=== PATIENT | female | born 1970 | race Two or more races ===

== ENCOUNTER 2022-10-26 12:03 | Emergency (ER) | payer OTHER ==
[~2022-10-26] VITALS: Ht 170.2 cm; Wt 170.2 kg
[2022-10-26 12:41] VITALS: BP 125/73
[2022-10-26 15:25] LABS: Basophils # (auto) 0 10 ^3/uL (0-0.2); Basophils % (auto) 0.6 % (0.0-2.0); Eosinophils # (auto) 0.1 10 ^3/uL (0-0.8); Eosinophils % (auto) 1.2 % (0.0-7.0); Hematocrit 39.9 % (36.0-46.0); Hemoglobin 13.5 g/dL (12.2-16.2); Lymphocytes # (auto) 1.8 10 ^3/uL (0.4-5.4); Lymphocytes % (auto) 22.7 % (10.0-50.0); Mean Corpuscular Hemoglobin 28.2 pg (28.0-32.0); Mean Corpuscular Volume 83.1 fL (80.0-100.0); Monocytes # (auto) 0.4 10 ^3/uL (0-1.3); Monocytes % (auto) 5.2 % (0.0-12.0); Neutrophils # (auto) 5.6 10 ^3/uL (1.6-8.6); Neutrophils % (auto) 70.3 % (37.0-80.0); Nucleated Red Blood Cells % 0.2 %; White Blood Cell 7.9 10^3/uL (4.4-10.8)
[2022-10-26 15:49] LABS: Urine Bacteria FEW /hpf (None Seen); Urine Blood Negative /uL (Negative); Urine Mucus FEW (None Seen); Urine Specific Gravity 1.023 (1.001-1.035); Urine WBC 14 /hpf (0 - 5)
[2022-10-26 16:05] LABS: Albumin 3.3 g/dL (3.4-5.0); BUN/Creatinine Ratio 10.9 (10.0-20.0); Calcium 8.6 mg/dL (8.5-10.1); Potassium 4.1 mmol/L (3.5-5.1)
[2022-10-26 16:07] LABS: Bilirubin, Total 0.5 mg/dL (0.2-1.0); Total Protein 7.7 g/dL (6.4-8.2)
[2022-10-26] MEDS ORDERED: CEPH-510 PO (17:23)
[2022-10-26] MEDS ORDERED: PHEN95TA10 PO (17:23)
[2022-10-26] MEDS ORDERED: ACET-6 PO (17:23)
== END 2022-10-26 17:23 | disposition admitted as inpatient to this hospital (09) ==
LOC: ER 12:03
DX: N39.0 Urinary tract infection, site not specified (principal); Z90.5 Acquired absence of kidney
CPT/HCPCS: 36415; 74176; 76775; 80053; 81001; 85025